=== PATIENT | female | born 1945 | race Caucasian/White ===

== ENCOUNTER 2021-07-24 10:27 | Emergency (ER) | payer MEDICARE, BC ==
--- NOTE | 2021-07-24 13:23 | EDM.PDOC ---
ED HPI GENERAL MEDICAL PROBLEM - General Chief Complaint: General Stated Complaint: toothache Time Seen by Provider: 07/24/21 10:30 Source of Information: Reports: Patient History Limitations: Reports: No Limitations - History of Present Illness INITIAL COMMENTS - FREE TEXT/NARRATIVE: Pt. presents to ER with complaints of dental pain. Pt. states that she has been experiencing discomfort to L lower lateral jaw area since yesterday. Pt. states that she does not have dental insurance. She was provided with information for free/reduced rate dental care by nursing on arrival to ER. Pt. denies any trauma to the area. She states that her L lower premolar is fractured and decayed and has caused her problems in the past. Onset: Today Onset Date: 07/24/21 Location: Reports: Head, Face Quality: Reports: Ache Severity: Moderate Worsens with: Reports: Eating, Movement toothache Pain Score (Numeric/FACES): 6 - Related Data Allergies Allergy/AdvReac Type Severity Reaction Status Date / Time No Known Drug Allergies Allergy NKDA Verified 07/24/21 10:43 Home Meds: Home Meds Cholecalciferol (Vitamin D3) [Vitamin D3] 2,000 unit PO DAILY 04/12/16 [History] Levothyroxine [Synthroid] 50 mcg PO ACBREAKFAST 04/12/16 [History] atorvaSTATin [Lipitor] 10 mg PO DAILY 04/12/16 [History] Losartan Potassium [Cozaar] 100 mg PO DAILY 07/24/21 [History] Magnesium Oxide [Magnesium] 500 mg PO DAILY 07/24/21 [History] Non-Formulary Medication [NF Drug] 1 tab PO DAILY 07/24/21 [History] Vitamin E 400 unit PO DAILY 07/24/21 [History] ED ROS GENERAL - Review of Systems Review Of Systems: Comprehensive ROS is negative, except as noted in HPI. ED EXAM, GENERAL - Physical Exam Exam: See Below Exam Limited By: No Limitations General Appearance: Alert, WD/WN, No Apparent Distress Nose: Normal Inspection, Normal Mucosa, No Blood Throat/Mouth: Normal Inspection, Normal Lips, Other (L lower bicuspid fractured with active decay noted. No obvious abscess noted. + L anterior cervical lymphadenopathy. She does have some L sided facial swelling. No edema to hypopharynx/neck mass noted.) Departure - Departure Time of Disposition: 11:00 Disposition: Home, Self-Care 01 Clinical Impression: Dental infection - Discharge Information Instructions: Amoxicillin; Clavulanic Acid Tablets, Dental Pain, [id number], Acetaminophen; Codeine tablets, Probiotics Referrals: PCP,None [Primary Care Provider] - Forms: ED Department Discharge Additional Instructions: Augmentin 875mg 1 tab twice daily for 10 days total Tylenol #3 1 every 4-6 hours as needed for pain Follow-up with dentist in 10-14 days Return to ER if not gradually improving, if you develop swelling in your neck, trouble swallowing, etc. Feel free to call at any time of you have questions. - Problem List Review Problem List Initiated/Reviewed/Updated: Yes - Assessment/Plan Plan: Augmentin 875mg 1 tab twice daily for 10 days total Tylenol #3 1 every 4-6 hours as needed for pain Follow-up with dentist in 10-14 days Return to ER if not gradually improving, if you develop swelling in your neck, trouble swallowing, etc. Feel free to call at any time of you have questions.
[2021-07-24 15:36] VITALS: BP 152/78; PULSE 77
== END 2021-07-24 11:09 | disposition home or self-care (01) ==
LOC: LL.ED 10:27
DX: K04.7 Periapical abscess without sinus (principal); Z79.899 Other long term (current) drug therapy
CPT/HCPCS: 99283